=== PATIENT | female | born 1985 | race Hispanic/Latino ===

== ENCOUNTER 2016-04-14 06:21 | Day surgery (SDC) | payer MEDICAID ==
[2016-04-14] MEDS ORDERED: NACL 0.9% 1000 ML 1,000 ML IV SCH (07:00)
--- NOTE | 2016-04-14 07:14 | Anesthesia Consultation ---
Anesthesia Consult and Med Hx Date of service: 04/14/16 - Airway Anesthetic Teeth Evaluation: Chipped ROM Head & Neck: Adequate Mental/Hyoid Distance: Adequate Mallampati Class: Class I Intubation Access Assessment: Good - Pulmonary Exam CTA: Yes - Cardiac Exam Cardiac Exam: RRR - Pre-Operative Health Status ASA Pre-Surgery Classification: ASA3 Proposed Anesthetic Plan: MAC - Pulmonary Hx Smoking: Yes (Occassional ) - Central Nervous System Hx Psychiatric Problems: Yes (" MILD PTSD'') - Hematic Hx Anemia: Yes - Other Systems Hx Obesity: Yes
--- NOTE | 2016-04-14 07:14 | Anesthesia Day of Surgery ---
Anesthesia Day of Surgery - Day of Surgery Patient Examined: Yes Patient H&P Reviewed: Yes Patient is NPO: Yes
[2016-04-14] MEDS ORDERED: WATER FOR IRRIG STERILE IR ONE (07:15)
[2016-04-14] MEDS ORDERED: DIPRIVAN 10 MG/ML IV ONE ×2 (07:21)
[2016-04-14] MEDS ORDERED: XYLOCAINE MPF 2% ONE (07:40)
[2016-04-14 08:22] VITALS: BP 109/58
--- NOTE | 2016-04-14 08:50 | Operative Report ---
ATTENDING SURGEON: Tony Abdi MD SAFETY CONSULTANT: Michael Moreland MD PREOPERATIVE DIAGNOSIS: Dyspepsia. POSTOPERATIVE DIAGNOSIS: Type 1 hiatal hernia. PROCEDURE: Esophagogastroduodenoscopy. INDICATIONS FOR PROCEDURE: The patient is a 30-year-old female with diagnosis of morbid obesity and a workup for bariatric surgery. She complains of dyspepsia. After discussing the risks and benefits of the procedure, she has had a consent for procedure performed. DESCRIPTION OF PROCEDURE: The patient was brought to the endoscopic suite, was placed in the stretcher in the left lateral position. MAC anesthesia was given by the anesthesia team. Time-out was called. The patient tolerated the procedure was correct. So, we inserted an endoscope into her oropharynx and went down through the esophagus into the stomach. The stomach was insufflated and then the pylorus was traversed into the duodenum. No gross abnormalities were visualized. Then as we retrieved the endoscope, the mucosa was examined circumferentially Then, we retroflexed the endoscope assessing the fundus of the stomach and the crura or the esophageal hiatus. There were no mucosal abnormalities seen, but there was a 4 cm hiatal hernia visualized. Then, we reduced the stomach distention and we retrieved the endoscope into the esophagus suctioning and assessing the GE junction. Once again a hiatal hernia was visualized. Then, we retrieved the endoscope completely through the oropharynx and finalized the procedure. The patient sent to endoscopy recovery room without a problem. The patient tolerated the procedure with no complications and Dr. Abdi was present for the entire procedure. JOB# [id number] RAMONA/RONNIE ALBERTS
--- NOTE | 2016-04-14 10:56 | Post Anesthesia Evaluation ---
- Post Anesthesia Evaluation Patient Participated: Yes Airway Patent: Yes Stable Respiratory Function: Yes Nausea/Vomiting: No Temp > 96.8F: Yes Pain Manageable: Yes Adequeate Hydration: Yes Anesthesia Complications: No Block Receding Appropriately: Not Applicable Patient on Ventilator: No
== END 2016-04-14 06:22 | disposition home or self-care (01) ==
LOC: GIO 06:21
PROVIDERS: ATTEND Specialist
DX: K44.9 Diaphragmatic hernia without obstruction or gangrene (principal); K21.9 Gastro-esophageal reflux disease without esophagitis; N39.3 Stress incontinence (female) (male); I10 Essential (primary) hypertension; D64.9 Anemia, unspecified; F43.10 Post-traumatic stress disorder, unspecified; E66.01 Morbid (severe) obesity due to excess calories; Z68.42 Body mass index [BMI] 45.0-49.9, adult; Z98.51 Tubal ligation status; Z98.890 Other specified postprocedural states; Z87.891 Personal history of nicotine dependence
CPT/HCPCS: 43235; 81025; J2704; J7030

== ENCOUNTER 2016-04-21 06:34 | Inpatient (IN) | payer MEDICAID ==
--- NOTE | 2016-04-16 09:17 | Admit Criteria Form ---
Admission Criteria Documentation: AMBULATORY SURGERY EXCEPTION CRITERIA Ambulatory Surgery Exception Criteria ( Place 'X' for any and all applicable criteria): Surgery or procedure performed on ambulatory basis may require inpatient stay for[A] ANY ONE of the following(1)(2)(3)(4)(5)(6)(7)(8)(9): [X] I. A preoperative situation, condition, or finding that warrants inpatient stay as indicated by ANY ONE of the following: [] a) Inpatient care needed because of severity of a disease or condition rather than the surgery (eg, severe cardiac or respiratory disease, severe infection) (15) (16 ) (17) (18) [] b) Emergent procedure (eg, angioplasty for acute ischemia)(19) [] c) Complex surgical approach or situation as indicated by ANY ONE of the following(3): [] i) Open approach needed instead of usual endoscopic, transcatheter, or other less invasive procedure [] ii) Difficult approach because of previous operation [] iii) Airway monitoring required after open neck procedures(20)(21) [] iv) Large mass requiring unusually extensive dissection [] v) Additional complicating feature requiring inpatient care (eg, drain management)(22(23): [X] d) Major surgery in a pt with high anesthetic risk as indicated by ANY ONE of the following (2)(3)(5)(7)(8): [X] i) ASA risk class III or higher (severe systemic disease impairing function) [D] [] ii) Advanced age (eg, older than 85 years)(14)(24) [] iii) Symptomatic heart failure(25) [] iv) Symptomatic asthma or COPD(8)(21) [] v) Morbid obesity with hemodynamic or respiratory problems(20)( 21)(26)(27) [] vi) Obstructive sleep apnea(20)(21) [] vii) Former premature infants who are younger than 60 weeks [] viii) High risk for severe postoperative abnormalities (eg, severe postoperative hypocalcemia after parathyroidectomy for severe hyperparathyroidism)(27)( 28) [] ix) Unstable angina(25) [] e) Drug-related risk requiring inpatient stay as indicated by ANY ONE of the following(5)(10)(14)(32)(33) [] i) Procedure requires discontinuing drugs or other therapy (eg , antiarrhythmic medication, antiseizure medication), which necessitates inpatient observation or treatment.(18)(31) [] ii) Major surgery and high risk drug use as indicated by ANY ONE of the following: [] 1) Active abuse of cocaine or similar drug [] 2) Monoamine oxidase inhibitor use [] 3) Other drug identified as posing risk [] f) Inadequate outpatient care situation as indicated by ANY ONE of the following(5)(10)(14)(32)(33) [] i) Patient lives remote from medical facility and procedure has urgent complication potential, and temporary nearby residence cannot be arranged [] ii) Patient will have postprocedure incapacitation and inadequate assistance at home, or alternative level of care cannot be arranged. [] iii) Patient will have long general anesthesia or procedure side effect resolution time, and competent person to stay with patient on first postoperative night at home or alternative level of care cannot be arranged. []iv) Other inadequate outpatient situation that cannot be handled by other means [] II. A perioperative event, condition, or finding that warrants inpatient stay as indicated by ANY ONE of the following (1)(2)(3): [] a) Inadequate physiologic recovery: cardiovascular, respiratory, or hemodynamic status not normal or near preoperative baseline(18) [] b) Hemodynamic instability [] c) Patient not alert with near normal or baseline mental status [] d) Temperature not normal or as expected and not appropriate for outpatient treatment of condition [] e) Ambulatory or appropriate activity level status not yet achieved post procedure [E](34)(35)(36) [] f) Operative site not appropriate (eg, unexpected or excessive drainage or bleeding) [] g) Postoperative effects not resolved or adequately managed (eg, significant pain or vomiting not appropriate for outpatient or next level of care)(10)(12) [] h) Complicating features requiring inpatient care as indicated by ANY ONE of the following(37): [] i) Severe complications of procedure (eg, bowel injury, airway compromise, vascular injury,severe hemorrhage) [] ii) Extensive (eg, dissection far beyond usual scope of procedure ) or prolonged (eg, 120 minutes beyond usual) surgery needed requiring inpatient postoperative care [] iii) Conversion to an open or complex procedure that requires inpatient care (eg, open vs laparoscopic cholecystectomy, abdominal vs vaginal hysterectomy)(38) [] iv) Comorbid condition or test result identified during or post procedure that requires inpatient care (7) [] v) Malignant hyperthermia(30) [] vi) Other complicating feature requiring inpatient care(22)(23) Inpatient stay may be needed until ALL of the following are present (1)(2)(3)(4) (5)(6)(10)(14)(33)(40): []a) Physiologic recovery: cardiovascular, respiratory, and hemodynamic status normal or near preoperative baseline []b) Hemodynamic stability []c) Patient alert, with near normal or baseline mental status []d) Temperature appropriate: patient afebrile or temperature appropriate for outpt treatment of condition []e) Activity level appropriate: ambulatory or appropriate activity level post procedure []f) Operative site appropriate as indicated by ALL of the following: []i) Site dry or with expected drainage []ii) Any blood noted is as expected for procedure. []g) Postoperative effects resolved or managed as indicated by ALL of the following: []i) Pain management appropriate for outpatient (or next level of) care(10) []ii) Minimal nausea and vomiting: if present, successfully treated with oral medication(12) []iii) Headache, dizziness, or drowsiness (if present) are mild. []h) Voiding status acceptable as indicated by ANY ONE of the following: []i) Voiding spontaneously []ii) No voiding but instructions given for follow-up in 6 to 8 hours []iii) Urinary catheter in place, and instructions given for follow-up []i) Complicating features requiring inpatient care manageable at a lower level of care(37) []j) Comorbid conditions manageable at a lower level of care(37) The original [employer] content created by [employer] has been revised. The portions of the content which have been revised are identified through the use of italic text or in bold, and [facility] [employer] has neither reviewed nor approved the modified material. All other unmodified content is copyright [employer]. Please see references footnoted in the original [employer] edition 2016 Admission Criteria Met: Yes
[~2016-04-21 06:34] MED LIST: ANCEF/STERILE WATER 2 GM/20 ML 2 GM/20 ML SYRINGE IV ONE; FLAGYL 500 MG/100 ML 500 MG/100 ML BAG IV NR; LACTATED RINGERS 1,000 ML IV SCH; LOVENOX SUB-Q NR; TRANSDERM-SCOP TD SCH
[2016-04-21] MEDS ORDERED: FLAGYL 500 MG/100 ML 500 MG/100 ML BAG IV NR ×2 (07:00→12:00)
[2016-04-21] MEDS ORDERED: ANCEF/STERILE WATER 2 GM/20 ML 2 GM/20 ML SYRINGE IV NR (07:00)
[2016-04-21] MEDS ORDERED: NACL BACTERIOSTATIC INFILTRATI ONE (11:14)
--- NOTE | 2016-04-21 11:36 | Anesthesia Consultation ---
Anesthesia Consult and Med Hx Date of service: 04/21/16 (Scheduled for Lap Gastric Sleeve with Dr. Abdi) - Airway Anesthetic Teeth Evaluation: Good ROM Head & Neck: Adequate Mental/Hyoid Distance: Adequate Mallampati Class: Class II Intubation Access Assessment: Probably Good - Pulmonary Exam CTA: Yes - Cardiac Exam Cardiac Exam: RRR - Pre-Operative Health Status ASA Pre-Surgery Classification: ASA3 Proposed Anesthetic Plan: General - Pre-Anesthesia Comment Pre-Anesthesia Comments: No previous anesthesia complications. NPO Since midnight. - Pulmonary Hx Smoking: Yes (Occassional ) Hx Sleep Apnea: No - Cardiovascular System Hx Hypertension: No - Central Nervous System Hx Seizures: No CVA: No Hx Psychiatric Problems: Yes (" MILD PTSD''- anxious this am) - Gastrointestinal Hx Gastroesophageal Reflux Disease: No - Endocrine Hx Renal Disease: No Hx Non-Insulin Dependent Diabetes: No - Hematic Hx Anemia: Yes (In past) - Other Systems Hx Obesity: Yes (CBC pending)
[2016-04-21 11:48] LABS: Basophils % (Auto) 0.5 % (0.0-1.8); Eosinophils % (Auto) 2.1 % (0.0-4.3); Hemoglobin 13.7 gm/dl (10.1-14.3); Mean Corpuscular HGB Conc 33 % (30-34); Mean Corpuscular Volume 79 fl (79-97); Platelet Count 412 K/mm3 (140-440); Red Blood Count 5.32 M/mm3 (3.65-5.03); White Blood Count 9.4 K/mm3 (4.5-11.0)
[2016-04-21 11:50] LABS: Bacteria,Urine 2+ /HPF (Negative); Mean Corpuscular Hemoglobin 26 pg (28-32); Mucus,Urine 3+ /HPF
[2016-04-21 11:52] LABS: Bilirubin,Urine NEG (Negative); Blood,Urine NEG (Negative); Ketones,Urine NEG (Negative); Leukocyte Esterase,Urine NEG (Negative); Nitrite,Urine NEG (Negative); Protein,Urine <15 mg/dL mg/dL (Negative); Urobilinogen,Urine < 2.0 mg/dL (<2.0)
[2016-04-21] MEDS ORDERED: PEPCID IV NR (12:00)
[2016-04-21] MEDS ORDERED: VERSED IV NR (12:00)
[2016-04-21 13:16] LABS: Alanine Aminotransferase 19 units/L (7-56); Albumin/Globulin Ratio 1.1 %; Alkaline Phosphatase 95 units/L (35-129); Anion Gap 18 mmol/L; Bilirubin,Total 0.4 mg/dL (0.1-1.2); Blood Urea Nitrogen 9 mg/dL (7-17); Calcium 8.7 mg/dL (8.4-10.2); Carbon Dioxide 25 mmol/L (22-30); Chloride 100.3 mmol/L (98-107); Glucose 84 mg/dL (65-100); Potassium 4.3 mmol/L (3.6-5.0); Sodium 139 mmol/L (137-145); Total Protein 7.6 g/dL (6.3-8.2)
[2016-04-21] MEDS ORDERED: XYLOCAINE MPF 2% ONE ×2 (13:22→13:33)
[2016-04-21] MEDS ORDERED: DIPRIVAN 10 MG/ML IV ONE (13:22)
[2016-04-21] MEDS ORDERED: DILAUDID ONE (13:22)
--- NOTE | 2016-04-21 13:46 | Anesthesia Day of Surgery ---
Anesthesia Day of Surgery - Day of Surgery Patient Examined: Yes Patient H&P Reviewed: Yes Patient is NPO: Yes
[2016-04-21] MEDS ORDERED: ZEMURON IV ONE (14:36)
[2016-04-21] MEDS ORDERED: NACL 0.9% IR ONE (14:38)
[2016-04-21] MEDS ORDERED: MARCAINE-EPI 0.5%-1:200,000 INFILTRATI ONE (14:38)
[2016-04-21] MEDS ORDERED: XYLOCAINE 1% 20 mL INFILTRATI ONE (14:38)
[2016-04-21] MEDS ORDERED: BLOXIVERZ ONE (16:05)
[2016-04-21] MEDS ORDERED: ROBINUL ONE ×2 (16:05→16:15)
[2016-04-21] MEDS ORDERED: ZOFRAN ONE (16:05)
[2016-04-21] MEDS ORDERED: LACTATED RINGERS 1,000 ML ONE (16:12)
[2016-04-21] MEDS ORDERED: ZOFRAN IV PRN (16:59)
[2016-04-21] MEDS: DILAUDID IV PRN ×7 (17:00→23:15)
[2016-04-21] MEDS: ZOFRAN IV PRN (18:11)
[2016-04-21] MEDS: LOVENOX SUB-Q SCH (21:02)
[2016-04-22] MEDS: ZOFRAN IV PRN ×2 (00:20→08:12)
[2016-04-22] MEDS: DILAUDID IV PRN ×6 (02:47→14:56)
[2016-04-22 05:12] LABS: Magnesium 2.1 mg/dL (1.7-2.3); Phosphorous 3.6 mg/dL (2.5-4.5)
[2016-04-22] MEDS: LOVENOX SUB-Q SCH (10:00)
[2016-04-22 10:15] LABS: Basophils % (Auto) 0.3 % (0.0-1.8); Eosinophils % (Auto) 0.3 % (0.0-4.3); Hemoglobin 12.2 gm/dl (10.1-14.3); Mean Corpuscular HGB Conc 32 % (30-34); Mean Corpuscular Volume 79 fl (79-97); Platelet Count 332 K/mm3 (140-440); Red Blood Count 4.82 M/mm3 (3.65-5.03); Red Cell Distribution Width 16.2 % (13.2-15.2); White Blood Count 12.8 K/mm3 (4.5-11.0)
[2016-04-22 10:20] LABS: Mean Corpuscular Hemoglobin 25 pg (28-32)
[2016-04-22 10:30] LABS: Alanine Aminotransferase 31 units/L (7-56); Albumin 3.5 g/dL (3.9-5); Albumin/Globulin Ratio 1.1 %; Alkaline Phosphatase 79 units/L (35-129); Anion Gap 16 mmol/L; Bilirubin,Total 0.5 mg/dL (0.1-1.2); Blood Urea Nitrogen 6 mg/dL (7-17); Calcium 8.4 mg/dL (8.4-10.2); Carbon Dioxide 25 mmol/L (22-30); Chloride 98.4 mmol/L (98-107); Glucose 89 mg/dL (65-100); Potassium 4.1 mmol/L (3.6-5.0); Sodium 135 mmol/L (137-145); Total Protein 6.7 g/dL (6.3-8.2)
--- NOTE | 2016-04-22 13:12 | Discharge Summary ---
Providers - Providers Date of Admission: 04/21/16 09:05 Date of discharge: 04/22/16 Attending physician: CORKY FELIPE Primary care physician: TAIWO SEXTON MD Hospitalization Condition: Stable Hospital course: admitted for overnight observation after surgery recovered appropriately and is ready for discharge Disposition: DISCHARGED TO HOME OR SELFCARE Core Measure Documentation - Palliative Care Palliative Care/ Comfort Measures: Not Applicable - Core Measures Any of the following diagnoses?: none Exam - Constitutional Vitals: Temp Pulse Resp BP Pulse Ox 98.3 F 87 18 107/63 97 04/22/16 08:00 04/22/16 10:00 04/22/16 10:00 04/22/16 08:00 04/22/16 10:00 General appearance: Present: no acute distress, well-nourished - EENT Eyes: Present: PERRL ENT: hearing intact, clear oral mucosa - Neck Neck: Present: supple, normal ROM - Respiratory Respiratory effort: normal Respiratory: bilateral: CTA - Cardiovascular Heart Sounds: Present: S1 & S2. Absent: rub, click - Extremities Extremities: pulses symmetrical, No edema Peripheral Pulses: within normal limits - Abdominal General gastrointestinal: Present: soft, non-distended, normal bowel sounds, other (mild TTP around wounds. Wounds c/d/i) - Integumentary Integumentary: Present: clear, warm, dry - Musculoskeletal Musculoskeletal: gait normal, strength equal bilaterally - Psychiatric Psychiatric: appropriate mood/affect, intact judgment & insight - Neurologic Neurologic: CNII-XII intact, moves all extremities Plan Follow up with: PRIMARY CARE, [Primary Care Provider] - 7 Days
[2016-04-22 16:32] VITALS: BP 108/64
== END 2016-04-22 15:20 | disposition home or self-care (01) | DRG 327 ==
LOC: 3A 09:05 → 2B-SURG 17:13
PROVIDERS: ADMIT Specialist; ATTEND Specialist
PROC: 0DB64Z3 Excision of Stomach, Percutaneous Endoscopic Approach, Vertical (ICD-10-PCS; principal; 2016-04-21)
PROC: 0BQR4ZZ (ICD-10-PCS; principal; 2016-04-21)
PROC: 0BQS4ZZ (ICD-10-PCS; principal; 2016-04-21)
DX: K44.9 Diaphragmatic hernia without obstruction or gangrene (principal); Z68.42 Body mass index [BMI] 45.0-49.9, adult; E66.01 Morbid (severe) obesity due to excess calories; K21.9 Gastro-esophageal reflux disease without esophagitis; F32.9 Major depressive disorder, single episode, unspecified; G47.30 Sleep apnea, unspecified; F43.10 Post-traumatic stress disorder, unspecified; F17.200 Nicotine dependence, unspecified, uncomplicated; D64.9 Anemia, unspecified; N39.3 Stress incontinence (female) (male); M54.89 Other dorsalgia; Z98.51 Tubal ligation status
CPT/HCPCS: 36415; 80053; 81001; 81025; 83735; 84100; 85025; 88307; C9250; J0690; J1170; J1650; J2250; J2405; J2704; J2710; J7120